=== PATIENT | male | born 1960 | race Caucasian/White ===

== ENCOUNTER 2021-05-10 07:49 | Inpatient (IN) | payer BC ==
[2021-05-04 16:52] LABS: BASOPHILS % (AUTO) 0.3 % (0-1); EOSINOPHILS # (AUTO) 0.1 X10'3 (0-0.9); EOSINOPHILS % (AUTO) 1.7 % (0-6); LYMPHOCYTES # (AUTO) 1.6 X10'3 (1.1-4.8); MEAN CORPUSCULAR HEMOGLOBIN 32.1 PG (27.0-31.0); MEAN CORPUSCULAR HGB CONC 34.2 g/dL (33.0-36.5); MONOCYTES # (AUTO) 0.4 X10'3 (0-0.9); MONOCYTES % (AUTO) 7.2 % (2-12); NEUTROPHILS # (AUTO) 3.8 X10'3 (1.8-7.7); NEUTROPHILS % (AUTO) 63.8 % (42-75); PRE OP HEMATOCRIT 41.9 % (42.0-52.0); PRE OP HEMOGLOBIN 14.3 g/dL (14.0-17.9); PRE OP PLATELET COUNT 291 X10'3 (140-440); RED BLOOD COUNT 4.45 X10'6 (4.70-6.10)
[2021-05-04 16:56] LABS: PRE OP INR 1.1 INR; PRE OP PROTIME 10.9 SECONDS (9.0-12.0)
[2021-05-04 17:01] LABS: ALKALINE PHOSPHATASE 74 IU/L (46-116); BLOOD UREA NITROGEN 14 MG/DL (7-18); BUN/CREATININE RATIO 13.5 (5.4-32.0); CALCIUM 8.9 MG/DL (8.5-10.1); CHLORIDE 107 MMOL/L (99-107); CREATININE 1.04 MG/DL (0.60-1.10); PRE OP ALT 38 U/L (30-65); PRE OP ANION GAP 7 (8-16); PRE OP AST 20 U/L (10-37); PRE OP BILIRUB, TOTAL 0.3 MG/DL (0.0-1.0); PRE OP GLUCOSE 89 MG/DL (70-104); PRE OP SODIUM 143 MMOL/L (135-145); TOTAL CARBON DIOXIDE 29.4 MMOL/L (24-32); eGFR 73 ML/MIN
[2021-05-10] VITALS (17 sets, daily range): BP systolic 103–141; BP diastolic 66–89
[~2021-05-10] VITALS: Ht 180.3 cm; Wt 80.5 kg
[~2021-05-10 07:49] MED LIST: MALTODEXTRIN/FRUCTOSE 0.68 KCAL/ML LIQUID 296ML BOTTLE PO ONE; NO HOME MEDS; ceFOXitin 2GM-NS 100mL ADDvant 100 ML IV ONE; famotidine 20mg tablet PO ONE; heparin, porcine 5000 units/ml vial SQ ONE; metroNIDAZOLE-Flagyl 500mg/NS 100ml IVPB IV ONE; ringers solution, lacted 1,000 ML IV SCH
[2021-05-10] MEDS ORDERED: fentaNYL /PF 50mcg/ml 5ml ampule ONE (09:48)
[2021-05-10] MEDS ORDERED: midazolam 1 mg/ML 2ml injection ONE (09:48)
[2021-05-10] MEDS ORDERED: rocuronium 10mg/ml inj IV ONE ×2 (09:49→11:23)
[2021-05-10] MEDS ORDERED: glycopyrrolate 0.2mg/ml inj ONE (09:49)
[2021-05-10] MEDS ORDERED: propofol inj 20 ML IV ONE (09:50)
[2021-05-10] MEDS ORDERED: ondansetron/PF 4mg/2ml inj ONE (09:50)
[2021-05-10] MEDS ORDERED: LIDOcaine 2% (20mg/ml) 5ml vial ONE (09:50)
[2021-05-10] MEDS ORDERED: BUPIVAcaine/PF 2.5 mg/ml (0.25%) 30ml vial ONE (10:05)
[2021-05-10] MEDS ORDERED: LIDOCAINE 1%/EPI 1:100,000 inj. 10 ML multi-dose vial ONE (10:05)
[2021-05-10] MEDS ORDERED: morphine 4 MG/ML inj SYRINge IV PRN (10:50)
[2021-05-10] MEDS ORDERED: ondansetron/PF 4mg/2ml inj IV PRN (10:50)
[2021-05-10] MEDS ORDERED: fentaNYL/PF 50MCG/1 ML 2ML syringe IV PRN ×2 (10:50)
[2021-05-10] MEDS ORDERED: labetalol 20mg/4ml (5mg/ml) syringe IV PRN (10:50)
[2021-05-10] MEDS ORDERED: morphine 2 MG/ML inj. syringe IV PRN (10:50)
[2021-05-10] MEDS ORDERED: hydrALAZINE 20mg/ml inj. IV PRN (10:50)
[2021-05-10] MEDS ORDERED: ringers solution, lacted 1,000 ML IV SCH (10:50)
[2021-05-10] MEDS ORDERED: dexamethasone sod phosphate 4mg/ml inj. ONE (10:53)
[2021-05-10] MEDS ORDERED: PHENYLephrine 10mg/ml 5ml injection IV ONE (10:53)
[2021-05-10] MEDS ORDERED: sevoflurane 250ml liquid IH ONE (10:53)
[2021-05-10] MEDS ORDERED: INDOCYANINE GREEN 25 MG/10 ML VIAL IV ONE (12:13)
[2021-05-10] MEDS ORDERED: povidone-iodine 10% ointment 1 APPLIC APPLIC TP ONE (12:47)
--- NOTE | 2021-05-10 13:58 | NUR ---
Received from OR via BED IN STABLE CONDITION , accompanied by Anesthesiologist and SALESFORCE TRAINER report given by SALESFORCE TRAINER AND Anesthesiolgist. Addendum: 05/10/21 at 1419 by Olya Zimmer RN Amended: Links added.
[2021-05-10] MEDS ORDERED: CADD PCA waste documentation MC PRN (14:00)
[2021-05-10] MEDS ORDERED: naloxone 0.4 mg/ml inj IV PRN (14:00)
[2021-05-10] MEDS: potassium CL 20mEq in D5-1/2NS 1,000 ML IV SCH (14:00)
[2021-05-10] MEDS: HYDROmorph./NS 0.2 mg/ml CADD 100 ML IV SCH ×6 (14:53→23:00)
--- NOTE | 2021-05-10 15:58 | NUR ---
PATIENT DISCHARGED FROM PACU IN STABLE CONDITION AFTER REPORT GIVEN. PATIENT TRANSFERRED VIA BED TO ROOM 350A. Addendum: 05/10/21 at 1559 by Olya Zimmer RN Amended: Links added.
[2021-05-10] MEDS: ceFOXitin inj 1,000 MG in dextrose 5%-water 100 ML IV SCH ×2 (17:06→23:20)
--- NOTE | 2021-05-10 17:51 | NUR ---
VSS on on RA. 4 lap sites on abdomen intact. CADD pump for pain. Report given to Day CARREON
[2021-05-10] MEDS: heparin, porcine 5000 units/ml vial SQ SCH (19:57)
[2021-05-11] VITALS: BP_SYST 111; BP_SYST 144; BP_DIAS 67; BP_DIAS 78
[2021-05-11 00:51] VITALS: BP 123/78
[2021-05-11] MEDS: HYDROmorph./NS 0.2 mg/ml CADD 100 ML IV SCH ×12 (01:00→23:00)
[2021-05-11 01:51] VITALS: BP 119/67
[2021-05-11] MEDS: potassium CL 20mEq in D5-1/2NS 1,000 ML IV SCH ×3 (03:20→23:17)
[2021-05-11 06:14] LABS: BASOPHILS % (AUTO) 0.1 % (0-1); EOSINOPHILS % (AUTO) 0 % (0-6); HEMATOCRIT 39.4 % (42.0-52.0); HEMOGLOBIN 13.8 g/dl (14.0-17.9); LYMPHOCYTES # (AUTO) 1.7 X10'3 (1.1-4.8); LYMPHOCYTES % (AUTO) 16.8 % (21-51); MEAN CORPUSCULAR HEMOGLOBIN 32.7 PG (27.0-31.0); MEAN CORPUSCULAR HGB CONC 35.2 g/dL (33.0-36.5); MEAN PLATELET VOLUME 7.2 FL (7.4-10.4); MONOCYTES # (AUTO) 0.9 X10'3 (0-0.9); MONOCYTES % (AUTO) 8.5 % (2-12); NEUTROPHILS # (AUTO) 7.6 X10'3 (1.8-7.7); NEUTROPHILS % (AUTO) 74.6 % (42-75); PLATELET COUNT 280 X10'3 (140-440); RED BLOOD COUNT 4.23 X10'6 (4.70-6.10); WHITE BLOOD COUNT 10.2 X10'3 (4.5-11.0)
[2021-05-11 06:16] LABS: ALBUMIN 3.6 G/DL (3.4-5.0); ANION GAP 10 (8-16); BLOOD UREA NITROGEN 10 MG/DL (7-18); BUN/CREATININE RATIO 10.1 (5.4-32.0); CALCIUM 8.9 MG/DL (8.5-10.1); CHLORIDE 104 MMOL/L (99-107); CREATININE 0.99 MG/DL (0.60-1.10); GLUCOSE 87 MG/DL (70-104); SODIUM 141 MMOL/L (135-145); TOTAL CARBON DIOXIDE 27.1 MMOL/L (24-32); eGFR 78 ML/MIN
--- NOTE | 2021-05-11 06:39 | NUR ---
Guerrero catheter Dc'd at 0545 and pt ambulated .Pt tolerated activity well .
[2021-05-11] MEDS: heparin, porcine 5000 units/ml vial SQ SCH ×2 (07:39→19:38)
[2021-05-11 08:00] VITALS: BP 123/71
[2021-05-11 12:00] VITALS: BP 138/76
[2021-05-11] MEDS: ondansetron/PF 4mg/2ml inj IV PRN ×2 (12:37→19:37)
--- NOTE | 2021-05-11 17:49 | NUR ---
Pt had small BM w dark blood. Passing gas, bowels sounds active. Zofran given for nausea x1. CADD for pain. Report given to Nola CARREON
--- NOTE | 2021-05-11 18:45 | NUR ---
Patient in room [facility]. I have received report from VELMA Miller and had the opportunity to ask questions and assume patient care.
[2021-05-11 20:00] VITALS: BP 151/92
[2021-05-12 00:01] VITALS: BP 144/78
[2021-05-12] MEDS: HYDROmorph./NS 0.2 mg/ml CADD 100 ML IV SCH ×3 (00:55→05:00)
--- NOTE | 2021-05-12 06:17 | NUR ---
Problems reprioritized. Patient report given, questions answered & plan of care reviewed with VELMA Miller.
[2021-05-12 06:29] LABS: BASOPHILS % (AUTO) 0.2 % (0-1); EOSINOPHILS % (AUTO) 0 % (0-6); HEMATOCRIT 40.3 % (42.0-52.0); LYMPHOCYTES # (AUTO) 1.8 X10'3 (1.1-4.8); MEAN CORPUSCULAR HEMOGLOBIN 32.2 PG (27.0-31.0); MEAN CORPUSCULAR HGB CONC 34.7 g/dL (33.0-36.5); MEAN CORPUSCULAR VOLUME 92.8 FL (78-98); MEAN PLATELET VOLUME 7.6 FL (7.4-10.4); MONOCYTES # (AUTO) 0.8 X10'3 (0-0.9); MONOCYTES % (AUTO) 6.6 % (2-12); NEUTROPHILS # (AUTO) 9.2 X10'3 (1.8-7.7); NEUTROPHILS % (AUTO) 78.2 % (42-75); PLATELET COUNT 270 X10'3 (140-440); RED BLOOD COUNT 4.34 X10'6 (4.70-6.10); WHITE BLOOD COUNT 11.8 X10'3 (4.5-11.0)
[2021-05-12 06:53] LABS: ALBUMIN 3.5 G/DL (3.4-5.0); ANION GAP 12 (8-16); BLOOD UREA NITROGEN 8 MG/DL (7-18); BUN/CREATININE RATIO 9.2 (5.4-32.0); CALCIUM 8.9 MG/DL (8.5-10.1); CHLORIDE 104 MMOL/L (99-107); CREATININE 0.87 MG/DL (0.60-1.10); GLUCOSE 114 MG/DL (70-104); POTASSIUM 3.9 MMOL/L (3.5-5.1); SODIUM 141 MMOL/L (135-145); TOTAL CARBON DIOXIDE 25.5 MMOL/L (24-32); eGFR 90 ML/MIN
[2021-05-12 07:00] VITALS: BP 146/77
[2021-05-12] MEDS: heparin, porcine 5000 units/ml vial SQ SCH ×2 (07:45→19:53)
[2021-05-12] MEDS: ondansetron/PF 4mg/2ml inj IV PRN ×3 (07:50→23:30)
[2021-05-12] MEDS: HYDROcodone/acetaminophen 5mg/325mg tablet PO PRN ×3 (08:59→23:36)
--- NOTE | 2021-05-12 10:15 | NUR ---
Pt stated he had drainage from rectum when voiding into toilet, and requested RN assess it. Clear colorless fluid was present in toilet w/ a small to moderate amount of reddish to dark pink sediment rested on the bottom of the toilet bowl. VELMA Miller, aware.
[2021-05-12 11:00] VITALS: BP 126/76
[2021-05-12] MEDS: potassium CL 20mEq in D5-1/2NS 1,000 ML IV SCH (15:49)
--- NOTE | 2021-05-12 18:15 | NUR ---
Patient in Room 350 A .Report received from Angela CARREON
--- NOTE | 2021-05-12 18:20 | NUR ---
Bloody stools improving. Zofran for nausea, norco for pain. Report given to Day CARREON
[2021-05-12 20:00] VITALS: BP 140/78
[2021-05-13] VITALS: BP 134/79
[2021-05-13 06:28] LABS: BASOPHILS % (AUTO) 0 % (0-1); EOSINOPHILS % (AUTO) 0.4 % (0-6); HEMATOCRIT 37.5 % (42.0-52.0); HEMOGLOBIN 12.9 g/dl (14.0-17.9); LYMPHOCYTES # (AUTO) 1.1 X10'3 (1.1-4.8); LYMPHOCYTES % (AUTO) 11.2 % (21-51); MEAN CORPUSCULAR HEMOGLOBIN 32.1 PG (27.0-31.0); MEAN CORPUSCULAR HGB CONC 34.5 g/dL (33.0-36.5); MEAN CORPUSCULAR VOLUME 93.1 FL (78-98); MEAN PLATELET VOLUME 7.4 FL (7.4-10.4); MONOCYTES # (AUTO) 0.7 X10'3 (0-0.9); MONOCYTES % (AUTO) 7.4 % (2-12); NEUTROPHILS # (AUTO) 7.6 X10'3 (1.8-7.7); PLATELET COUNT 243 X10'3 (140-440); RED BLOOD COUNT 4.03 X10'6 (4.70-6.10); RED CELL DISTRIBUTION WIDTH 13.1 % (11.5-14.5); WHITE BLOOD COUNT 9.4 X10'3 (4.5-11.0)
--- NOTE | 2021-05-13 06:29 | NUR ---
Report given to Carmenza CARREON
--- NOTE | 2021-05-13 06:42 | NUR ---
Patient in room [facility] 350A. I have received report from VELMA JERNIGAN and had the opportunity to ask questions and assume patient care.
[2021-05-13 06:44] LABS: ALBUMIN 3.2 G/DL (3.4-5.0); ANION GAP 6 (8-16); BLOOD UREA NITROGEN 6 MG/DL (7-18); BUN/CREATININE RATIO 8.1 (5.4-32.0); CALCIUM 8.8 MG/DL (8.5-10.1); CHLORIDE 102 MMOL/L (99-107); CREATININE 0.74 MG/DL (0.60-1.10); GLUCOSE 109 MG/DL (70-104); POTASSIUM 3.5 MMOL/L (3.5-5.1); SODIUM 136 MMOL/L (135-145); TOTAL CARBON DIOXIDE 28.1 MMOL/L (24-32); eGFR > 90 ML/MIN
[2021-05-13 07:00] VITALS: BP 136/76
[2021-05-13] MEDS: heparin, porcine 5000 units/ml vial SQ SCH (07:57)
--- NOTE | 2021-05-13 12:22 | NUR ---
PATIENT STABLE AND APPROPRIATE FOR DISCHARGE, IV TAKEN OUT, EDUCATION GIVEN, ALL BELONGINGS SENT WITH PATIENT, PATIENT TAKEN TO LOBBY BY WHEELCHAIR TO AN AWAITING CAR WHERE WILL TAKE PATIENT HOME
== END 2021-05-13 11:28 | disposition home or self-care (01) | DRG 330 ==
LOC: PAS IN 07:49 → SUR 3N 16:02
PROVIDERS: ADMIT Colon & Rectal Surgery; ATTEND Colon & Rectal Surgery
PROC: 8E0W4CZ Robotic Assisted Procedure of Trunk Region, Percutaneous Endoscopic Approach (ICD-10-PCS; 2021-05-10)
PROC: 0DTN4ZZ Resection of Sigmoid Colon, Percutaneous Endoscopic Approach (ICD-10-PCS; principal; 2021-05-10 10:10)
DX: C18.7 Malignant neoplasm of sigmoid colon (principal); K63.3 Ulcer of intestine; K62.4 Stenosis of anus and rectum; K76.9 Liver disease, unspecified; F17.220 Nicotine dependence, chewing tobacco, uncomplicated; Z98.52 Vasectomy status; Z91.041 Radiographic dye allergy status; Z71.6 Tobacco abuse counseling
CPT/HCPCS: Z7506; Z7508; 36415; 80048; 80053; 82948; 85025; 85610; 85730; 86885; 86900; 86901; 87081; 93005; A4338; A4355; A4402; A4618; A6402; A6449; A7000; G0378; J0694; J1100; J1170; J1644; J2250; J2370; J2405; J2704; J3010; J3480; J3490; J7030; J7060; J7120; U0003; U0005